=== PATIENT | male | born 1965 | race Caucasian/White ===

== ENCOUNTER 2017-01-05 12:24 | Observation (INO) ==
[2017-01-05] MEDS ORDERED: 0.9 % Sodium Chloride 1,000 ML IVC ONE (12:37)
--- NOTE | 2017-01-05 12:44 | Emergency Department Note ---
Disposition Clinical Impression: Altered mental status Qualifiers: Altered mental status type: unspecified Qualified Code(s): R41.82 - Altered mental status, unspecified Disposition: Admitted As Inpatient Condition: Good Referrals: NO,PCP [Primary Care Provider] - Forms: ED Satisfaction Letter General Adult HPI - General Chief complaint: ED Psychiatric Symptoms Stated complaint: Psych/Slurred Speech Time Seen by Provider: 01/05/17 12:37 Source: EMS Limitations: no limitations Nursing Notes Reviewed: Yes Vital Signs Reviewed: Yes - History of Present Illness HPI Narrative: Patient brought in by EMS for evaluation of altered mental status. Patient was initially seen at outpatient psychiatric clinic and was referred secondary to constellation of symptoms. Patient is able to speak in sentences and is awake and alert however his orientation alters and fluctuates throughout the interview. His initial name and birthdate have not been found to have a match. Patient is unable to work on [employer]. Patient had to be initially put on computers at [facility] [place]. Patient states that his symptoms have been going on since the fifth. He was asked if to confirm that this has been longer than a week but she said yes. On exam the patient does have some right- sided weakness as well as numbness to the lower extremity. Patient has diffuse weakness and complains of fatigue. Will initiate head CT as well as further evaluation for possible stroke versus metabolic or other organic cause. Pain Scale: 0 - Related Data Allergies Allergy/AdvReac Type Severity Reaction Status Date / Time meperidine [From Demerol] Allergy Hallucinati Verified 01/05/17 12:41 ng Review of Systems: Review of systems Limited to patient's mental status and ability to communicate. The below pertinent positive and negative findings were verified with patient. Constitutional: Reports: weakness, other (Fatigue) Neurological: Reports: weakness, numbness, confusion Endocrine: Reports: fatigue Past Medical History - Past Medical History Medical history: Reports: hyperlipidemia, hypertension Psychiatric history: Reports: anxiety, depression - Social History Smoking Status: Never smoker Smokeless Tobacco Status: Yes (chewing tobacco) Alcohol use: Reports: occasionally Drug use: Reports: none Physical Exam General appearance: Patient with slurred speech and confusion Eyes: anicteric sclerae, moist conjunctivae; PERRL HENT: Atraumatic; oropharynx clear with moist mucous membranes and no mucosal ulcerations Neck: Normal inspection; Trachea midline; FROM, supple Lungs: CTA, with normal respiratory effort and no intercostal retractions CV: RRR, no MRGs Abdomen: Soft, non-tender; no rebound or gaurding Extremities: No peripheral edema or extremity lymphadenopathy Skin: Normal temperature; no rash, ulcers or lesions Psych: Appropriate mood and affect Neuro: Awake - General Limitations: no limitations General appearance: alert - Expanded Neurological Exam Patient oriented to: Present: person. Absent: place, time Speech: Present: expressive aphasia Cranial nerves: EOM function (II, III, IV, ): Normal, facial sensation (V): Normal, facial palsy (VII): Normal, gag reflex (IX): Normal, spinal accessory function (XI): Normal, tongue deviation (XII): Normal Cerebellar function: finger to nose: Abnormal Right, heel to scott: Normal Motor strength - LUE: 4/5 Motor strength - RUE: 4/5 Motor strength - LLE: 4/5 Motor strength - RLE: 3/5 Sensory exam upper extremity: light touch: Normal Sensory exam lower extremity: light touch: Abnormal Right Coma Scale Eye Opening: Spontaneous Coma Scale Motor Response: Obeys Commands Coma Scale Verbal Response: Oriented Coma Scale Total: 15 Course - Reevaluation(s) Reevaluation #1: Mother is now bedside. Patient has been altered since Tuesday. Patient awoke on Tuesday and had a period of lucidity this the last approximately 20 minutes. She states that he took his medications and 10 minutes after that he went back to this altered behavior where he has generalized weakness. Associated falls. Aggressive behavior, forgetfulness, stuttering. Patient has had several episodes similar to this in the past but they have not had a specific diagnosis. Patient lives with his mother where she is able to help with his care. Patient has a history of bipolar, schizophrenia, diabetes, deteriorating disks. She has a medication list will be also provided and the patient chart which includes help her down, Lipitor, metformin, Hydrocort Dyazide, ranitidine , if,, allopurinol, lisinopril, omeprazole, Risperdal, doxepin, benztropine, Depakote, fenofibrate. His mother's name is Antionette. Phone number is [phone]. - Consultations Consultation #1: Hospitalist Dr. Dixon accepts. Vital Signs Temperature 98 F 01/05/17 12:25 Pulse Rate 104 07/19/17 12:25 Respiratory Rate 18 01/05/17 12:25 Blood Pressure 127/85 01/05/17 12:25 O2 Sat by Pulse Oximetry 94 01/05/17 12:25 Temperature 98 F 01/05/17 12:25 Pulse Rate 96 01/05/17 15:20 Respiratory Rate 18 01/05/17 15:20 Blood Pressure 130/79 01/05/17 15:20 O2 Sat by Pulse Oximetry 94 01/05/17 15:20 Oxygen Delivery Oxygen Delivery Room Air Medical Decision Making - Medical Records Medical records reviewed: Yes I reviewed the patient's medical records. - Lab Data Lab results reviewed: Yes I reviewed the patient's lab results. Result diagrams: 01/05/17 13:06 01/05/17 13:06 Lab Results 01/05/17 01/05/17 01/05/17 Range/Units 13:06 13:06 13:06 WBC 5.9 (4.3-11.1) K/mcL RBC 4.57 (4.19-5.50) M/mcL Hgb 15.1 (12.9-16.9) g/dL Hct 43.7 (37.5-50.1) % MCV 95.6 (83.0-100.0) fL MCH 33.0 (28.0-33.3) pg MCHC 34.6 (31.6-35.5) g/dL RDW 13.2 (11.5-14.5) % Plt Count 250 (140-400) K/mcL MPV 9.2 L (9.4-12.4) fL Immature Gran % 0.3 (0-4) % Seg Neutrophils % 66.0 % Lymphocytes % 26.1 % Monocytes % 5.1 % Eosinophils % 1.5 % Basophils % 1.0 % Neutrophils # 3.9 (1.6-8.9) K/mcL Lymphocytes # 1.6 (0.6-4.6) K/mcL Monocytes # 0.3 (0.0-1.3) K/mcL Eosinophils # 0.1 (0.0-0.6) K/mcL Basophils # 0.1 (0.0-0.2) K/mcL PT 11.5 (9.4-12.1) Seconds INR 1.1 APTT 28.0 (26.0-36.0) Seconds Sodium 136 (136-145) mEq/L Potassium 4.4 (3.5-4.5) mEq/L Chloride 101 (98-109) mEq/L Carbon Dioxide 26 (19-29) mEq/L BUN 13 (8-26) mg/dL Creatinine 1.08 (0.72-1.25) mg/dL Est GFR ( Amer) > 60 (> 60) Est GFR (Non-Af Amer) > 60 (> 60) BUN/Creatinine Ratio 12 (6-26) Glucose 131 H (70-99) mg/dL Calculated Osmolality 284 (280-300) Calcium 9.6 (8.6-10.8) mg/dL Creatine Kinase 435 H (30-200) Units/L Troponin I (0-0.03) ng/mL Urine Color (Yellow) Urine Clarity (Clear) Urine pH (5.0-8.0) pH Units Ur Specific Elon (1.010-1.025) Urine Protein (Neg-Trace) mg/dL Urine Glucose (UA) (Normal) mg/dL Urine Ketones (Negative) mg/dL Urine Blood (Negative) Urine Nitrite (Negative) Urine Bilirubin (Negative) Urine Urobilinogen (Normal) mg/dL Ur Leukocyte Esterase (Negative) Ur Culture Indicated? (NO) Urine Opiates Screen (Cxhxoj=477) ng/mL Ur Barbiturates Screen (Onyjgk=310) ng/mL Ur Phencyclidine Scrn (Cutoff=25) ng/mL Ur Amphetamines Screen (Rmwuxl=0650) ng/mL U Benzodiazepines Scrn (Rfcowo=101) ng/mL Urine Cocaine Screen (Cutoff= 300) ng/mL U Marijuana (THC) Screen (Cutoff = 50) ng/mL Ethyl Alcohol < 10 (0-10) mg/dL 01/05/17 01/05/17 01/05/17 Range/Units 13:06 15:17 15:17 WBC (4.3-11.1) K/mcL RBC (4.19-5.50) M/mcL Hgb (12.9-16.9) g/dL Hct (37.5-50.1) % MCV (83.0-100.0) fL MCH (28.0-33.3) pg MCHC (31.6-35.5) g/dL RDW (11.5-14.5) % Plt Count (140-400) K/mcL MPV (9.4-12.4) fL Immature Gran % (0-4) % Seg Neutrophils % % Lymphocytes % % Monocytes % % Eosinophils % % Basophils % % Neutrophils # (1.6-8.9) K/mcL Lymphocytes # (0.6-4.6) K/mcL Monocytes # (0.0-1.3) K/mcL Eosinophils # (0.0-0.6) K/mcL Basophils # (0.0-0.2) K/mcL PT (9.4-12.1) Seconds INR APTT (26.0-36.0) Seconds Sodium (136-145) mEq/L Potassium (3.5-4.5) mEq/L Chloride (98-109) mEq/L Carbon Dioxide (19-29) mEq/L BUN (8-26) mg/dL Creatinine (0.72-1.25) mg/dL Est GFR ( Amer) (> 60) Est GFR (Non-Af Amer) (> 60) BUN/Creatinine Ratio (6-26) Glucose (70-99) mg/dL Calculated Osmolality (280-300) Calcium (8.6-10.8) mg/dL Creatine Kinase (30-200) Units/L Troponin I 0.01 (0-0.03) ng/mL Urine Color Yellow (Yellow) Urine Clarity Clear (Clear) Urine pH 7.5 (5.0-8.0) pH Units Ur Specific Elon > 1.030 H (1.010-1.025) Urine Protein Negative (Neg-Trace) mg/dL Urine Glucose (UA) >=1000 H (Normal) mg/dL Urine Ketones 15 H (Negative) mg/dL Urine Blood Negative (Negative) Urine Nitrite Negative (Negative) Urine Bilirubin Negative (Negative) Urine Urobilinogen Normal (Normal) mg/dL Ur Leukocyte Esterase Negative (Negative) Ur Culture Indicated? NO (NO) Urine Opiates Screen Negative (Uzogvs=668) ng/mL Ur Barbiturates Screen Negative (Gjrrpa=767) ng/mL Ur Phencyclidine Scrn Negative (Cutoff=25) ng/mL Ur Amphetamines Screen Negative (Hegdpv=0892) ng/mL U Benzodiazepines Scrn Negative (Gtilah=937) ng/mL Urine Cocaine Screen Negative (Cutoff= 300) ng/mL U Marijuana (THC) Screen Negative (Cutoff = 50) ng/mL Ethyl Alcohol (0-10) mg/dL - Radiology Data Radiology results reviewed: Yes I reviewed the patient's radiology results. - EKG Data EKG #1 EKG attestation: Yes I reviewed and interpreted this EKG. EKG results narrative: EKG shows sinus rhythm with ventricular rate of 95 bpm. W[place] interval 167. QRS 10. QTC 415. Patient has no significant ST elevations or depressions. No previous EKG for comparison. Attestation Statement - Attestation Attestation: I examined this patient and my medical decision-making was reviewed with the Resident Physician. I agree with the documented findings, disposition and treatment plan as described except to the extent set forth below. Patient emergency department with weakness. Patient was in town for a worker's comp appointment. He was having slurred speech and weakness. They could not walk him. They called 911 concern for stroke. Patient is a history of similar episodes in the past. This one is lasted since Tuesday. States this is a worse episode is had. On examination he is in no acute distress sitting on the side of the bed. Do not appreciate any focal weakness. No pronator drift. Speech is difficult to understand. Slurred. Plan. Do not appreciate any focal neurologic deficits to suggest a stroke. Symptoms have been present for over 24 hours. He would not meet criteria for TPA. Patient will be admitted for further monitoring and workup.
[2017-01-05 13:23] LABS: Basophils # 0.1 K/mcL (0.0-0.2); Eosinophils # 0.1 K/mcL (0.0-0.6); Eosinophils % 1.5 %; Hematocrit 43.7 % (37.5-50.1); Hemoglobin 15.1 g/dL (12.9-16.9); Immature Granulocytes % 0.3 % (0-4); Lymphocytes # 1.6 K/mcL (0.6-4.6); Lymphocytes % 26.1 %; Mean Corpuscular HGB Conc 34.6 g/dL (31.6-35.5); Mean Corpuscular Volume 95.6 fL (83.0-100.0); Mean Platelet Volume 9.2 fL (9.4-12.4); Monocytes # 0.3 K/mcL (0.0-1.3); Monocytes % 5.1 %; Neutrophils # 3.9 K/mcL (1.6-8.9); Platelet Count 250 K/mcL (140-400); Red Blood Count 4.57 M/mcL (4.19-5.50); Red Cell Distribution Width 13.2 % (11.5-14.5)
[2017-01-05 13:30] LABS: INR 1.1; Prothrombin Time 11.5 Seconds (9.4-12.1)
[2017-01-05 13:36] LABS: BUN/Creatinine Ratio 12 (6-26); Blood Urea Nitrogen 13 mg/dL (8-26); Calcium 9.6 mg/dL (8.6-10.8); Carbon Dioxide 26 mEq/L (19-29); Chloride 101 mEq/L (98-109); Creatine Kinase 435 Units/L (30-200); Glucose 131 mg/dL (70-99); Osmolality,Calculated 284 (280-300); Potassium 4.4 mEq/L (3.5-4.5); Sodium 136 mEq/L (136-145); eGFR For African Americans > 60 (> 60); eGFR For Non-African Americans > 60 (> 60)
[2017-01-05 13:37] LABS: Ethanol < 10 mg/dL (0-10)
[2017-01-05 15:33] LABS: Bilirubin,Urine Negative (Negative); Blood,Urine Negative (Negative); Clarity,Urine Clear (Clear); Color,Urine Yellow (Yellow); Glucose,Urine (UA) >=1000 mg/dL (Normal); Ketones,Urine 15 mg/dL (Negative); Leukocyte Esterase,Urine Negative (Negative); Nitrite,Urine Negative (Negative); PH,Urine 7.5 pH Units (5.0-8.0); Protein,Urine Negative (Neg-Trace); Specific Gravity,Urine > 1.030 (1.010-1.025); Urobilinogen,Urine Normal (Normal)
[2017-01-05 15:37] LABS: Amphetamine Screen,Urine Negative ng/mL (Cutoff=1000); Barbiturate Screen,Urine Negative ng/mL (Cutoff=200); Benzodiazepines Screen,Urine Negative ng/mL (Cutoff=200); Cannabinoid Screen,Urine Negative ng/mL (Cutoff = 50); Cocaine Screen,Urine Negative ng/mL (Cutoff= 300); Opiate Screen,Urine Negative ng/mL (Cutoff=300); Phencyclidine Screen,Urine Negative ng/mL (Cutoff=25)
[2017-01-05] MEDS ORDERED: Naloxone 0.4 MG/ML INJ IVP PRN (17:37)
[2017-01-05] MEDS ORDERED: Ondansetron 4 MG/2 ML VIAL IVP PRN (17:37)
[2017-01-05] MEDS: 0.9 % Sodium Chloride 1,000 ML IVC SCH (19:10)
[2017-01-05] MEDS ORDERED: *HR* Dextrose 50 % in Water (Syg) 50 ML SYRINGE IVP PRN (19:16)
[2017-01-05] MEDS ORDERED: D5% in Water 1,000 ML IVC PRN (19:16)
[2017-01-05] MEDS ORDERED: Dextrose Gel 15 GM PO PRN ×2 (19:16)
[2017-01-05] MEDS: Aspirin Enteric Coated 81 MG Tablet PO SCH (19:23)
[2017-01-05] MEDS: *HR* Heparin 5,000 UNIT/ML VIAL SQ SCH (19:24)
--- NOTE | 2017-01-05 20:11 | Internal Med History&Physical ---
Date of Encounter: 01/05/17 Time of Encounter: 18:00 Assessment and Plan (1) Schizophrenia Current visit: Yes Status: Acute We will consult psychiatry and adjust medication in a.m. Qualifiers: Schizophrenia type: unspecified Qualified Code(s): F20.9 - Schizophrenia, unspecified (2) DVT prophylaxis Current visit: Yes Status: Acute Heparin subcutaneously (3) Hypertension Current visit: Yes Status: Acute Continue home medications. BP is stable Qualifiers: Hypertension type: essential hypertension Qualified Code(s): I10 - Essential (primary) hypertension (4) Diabetes Current visit: Yes Status: Acute Place patient on sliding scale coverage Qualifiers: Diabetes mellitus type: type 2 Diabetes mellitus complication status: without complication Diabetes mellitus intermediate accountant insulin use: without intermediate accountant use Qualified Code(s): E11.9 - Type 2 diabetes mellitus without complications (5) Altered mental status Current visit: Yes Status: Acute Etiology is undetermined. Most likely due to polypharmacy causal by psych medication. - We will place patient on close monitoring. - Continue cardiac monitoring to rule out arrhythmia. - Place echo and duplex carotid - Psych consult for medication management. - No signs of infection. Qualifiers: Altered mental status type: disorientation Qualified Code(s): R41.0 - Disorientation, unspecified Internal Medicine - H&P: HPI Chief complaint: Altered mental status Admitted From: Home Plans for Post Hospital Care: Home History of present illness: Mr. Bergman is a 51 year old male with significant psych history present to ER for altered mental status. Patient is awake alert but disoriented. According to family, patient has similar episodes previously. He was also complaining of left arm weakness, however, CT head negative and weakness has resolved when I examined him. There is no signs of dehydration or infection. Consider multiple psych medication caused confusion. We will obtain psychiatry consult in a.m. Place patient on close monitoring. Past Med Surg Social Fam HX - Past Medical History Medical history: hyperlipidemia, hypertension Psychiatric history: anxiety, depression - Social History Smoking Status: Never smoker Smokeless Tobacco Status: Yes (chewing tobacco) Alcohol use: occasionally Drug use: none - Family History Father Living Status: Hx Family Cardiac Disorders: Yes ([place]) Internal Medicine - H&P: Meds Allopurinol [Zyloprim] 300 mg PO DAILY 01/05/17 [History] Atorvastatin Calcium [Lipitor] 80 mg PO HS 01/05/17 [History] Benztropine Mesylate 2 mg PO BID 01/05/17 [History] Canagliflozin [Invokana] 100 mg PO QAM 01/05/17 [History] Divalproex (24 HR) [Depakote ER (24 HR)] 1,500 mg PO HS 01/05/17 [History] Doxepin HCl 150 mg PO HS 01/05/17 [History] Fenofibrate 134 mg PO DAILY 01/05/17 [History] Lisinopril [Zestril] 20 mg PO DAILY 01/05/17 [History] Metformin HCl [Glucophage] 1,000 mg PO BID 01/05/17 [History] [place]-3/Dha/Epa/Fish Oil [Fish Oil 1,000 mg Softgel] 2,000 mg PO BID 01/05/17 [ History] Omeprazole [PriLOSEC] 20 mg PO DAILY 01/05/17 [History] Paliperidone Palmitate [Invega Sustenna] 234 mg IM QMONTH 01/05/17 [History] Ranitidine HCl [Zantac] 150 mg PO 1-2XD PRN 01/05/17 [History] hydroCHLOROthiazide [Hydrochlorothiazide] 25 mg PO DAILY 01/05/17 [History] risperiDONE [RisperDAL] 1 mg PO HS 01/05/17 [History] Allergies meperidine [From Demerol] Allergy (Verified 01/05/17 12:41) Hallucinating All Systems PM: A 10-system review of systems was performed and is negative for pertinent findings except as documented above in the HPI. - Constitutional Vitals: Temp Pulse Resp BP Pulse Ox 97.8 F 100 15 145/92 94 01/05/17 19:16 01/05/17 19:16 01/05/17 19:16 01/05/17 19:16 01/05/17 19:16 General appearance: Present: A&O X 0, no acute distress - Head Head exam: Present: atraumatic, normocephalic - Eye Eye exam: Present: PERRL, conjuntiva pink, sclera anicteric Pupils: Present: PERRL - Neck Neck exam general surgery: Present: supple, trachea midline. Absent: lymphadenopathy - Respiratory Respiratory exam: Present: CTAB. Absent: accessory muscle use, rales, rhonchi, wheezes - Cardiovascular Cardiovascular exam: Present: RRR, +S1, +S2. Absent: diastolic murmur, gallop, rubs, systolic murmur - GI/Abdominal GI/Abdominal exam: Present: normal bowel sounds, soft, no peritoneal signs. Absent: distended, tenderness - Extremities Exam Extremities exam: Present: warm, radial pulses palpable and symetrical. Absent : calf tenderness, cyanotic, pedal edema - Neurological Exam Neurological exam: Present: CN II-XII intact, oriented X3, no focal deficits. Absent: pronater drift, facial droop, speech deficit Additional comments: Fine tremor on both arm. - Skin Skin exam: Present: dry, intact Internal Med - H&P Results - Labs CBC & Chem 7: 01/05/17 13:06 01/05/17 13:06
[2017-01-05] MEDS: Nicotine 14 MG PATCH.TD24 TD SCH (22:21)
[2017-01-06] MEDS: Insulin LISPRO 300 UNITS/3 ML VIAL SQ SCH ×5 (04:24→20:06)
[2017-01-06] MEDS: *HR* Heparin 5,000 UNIT/ML VIAL SQ SCH ×2 (05:22→17:20)
[2017-01-06] MEDS: 0.9 % Sodium Chloride 1,000 ML IVC SCH ×2 (05:36→14:49)
[2017-01-06 07:00] LABS: Alanine Aminotransferase 22 Units/L (0-55); Albumin 3.7 g/dL (3.5-5.0); Albumin/Globulin Ratio 1.1 (1.1-2.2); Alkaline Phosphatase 77 Units/L (38-126); Aspartate Amino Transferase 31 Units/L (5-34); BUN/Creatinine Ratio 12 (6-26); Bilirubin,Total 0.6 mg/dL (0.2-1.2); Blood Urea Nitrogen 13 mg/dL (8-26); Carbon Dioxide 29 mEq/L (19-29); Chloride 103 mEq/L (98-109); Globulin 3.4 g/dL (2.4-3.5); Glucose 143 mg/dL (70-99); Magnesium 2.4 mg/dL (1.6-2.6); Osmolality,Calculated 287 (280-300); Potassium 4.2 mEq/L (3.5-4.5); Sodium 137 mEq/L (136-145); Total Protein 7.1 g/dL (6.0-8.3); eGFR For African Americans > 60 (> 60); eGFR For Non-African Americans > 60 (> 60)
[2017-01-06 07:01] LABS: Basophils # 0.1 K/mcL (0.0-0.2); Basophils % 1.5 %; Eosinophils # 0.2 K/mcL (0.0-0.6); Eosinophils % 3.8 %; Hematocrit 43.1 % (37.5-50.1); Hemoglobin 14.2 g/dL (12.9-16.9); Immature Granulocytes % 0.3 % (0-4); Lymphocytes # 2.2 K/mcL (0.6-4.6); Lymphocytes % 35.4 %; Mean Corpuscular HGB Conc 32.9 g/dL (31.6-35.5); Mean Corpuscular Hemoglobin 32.1 pg (28.0-33.3); Mean Corpuscular Volume 97.5 fL (83.0-100.0); Mean Platelet Volume 9.3 fL (9.4-12.4); Monocytes # 0.5 K/mcL (0.0-1.3); Monocytes % 8.5 %; Neutrophils # 3.1 K/mcL (1.6-8.9); Platelet Count 266 K/mcL (140-400); Red Blood Count 4.42 M/mcL (4.19-5.50); Segmented Neutrophils % 50.5 %
[2017-01-06 07:23] LABS: Thyroid Stimulating Hormone 2.382 mcIU/mL (0.350-4.840)
[2017-01-06] MEDS: Lisinopril 20 MG TABLET PO SCH (08:56)
[2017-01-06] MEDS: Nicotine 14 MG PATCH.TD24 TD SCH (08:56)
[2017-01-06] MEDS: hydroCHLOROthiazide 25 MG TABLET PO SCH (08:56)
[2017-01-06] MEDS: Aspirin Enteric Coated 81 MG Tablet PO SCH (08:56)
--- NOTE | 2017-01-06 09:05 | Electrocardiograph Report ---
[facility] Test Date: 2017-01-05 Pat Name: Yan Bergman Department: 105 Room: 3B11 Gender: M Materials Clerk: : 1965 Requested By: Sharad Burch Order Number: [id number] Rolan MD: Harjinder García MD Measurements Intervals [place] Rate: 95 P: 10 KS: 167 QRS: -37 QRSD: 110 T: 12 QT: 362 QTc: 415 Interpretive Statements SINUS RHYTHM MARKED LEFT AXIS DEVIATION [QRS AXIS < -30] PATTERN CONSISTENT WITH PULMONARY DISEASE Electronically Signed On 01-06-2017 9:03:54 EDT by Harjinder García MD
--- NOTE | 2017-01-06 14:36 | Carotid Imaging Report ---
Carotid Duplex Patient Name:Yan Bergman Order Number:[id number] Procedure Date:01/05/2017 Date:1965Age:51 yrs Gender:Male Lt BP:139 / 92 mmHg Rt.BP:139 / 92 mmHgHeart Rate: Location:[facility] Room #: 3B11 Car Dumper Operator:Nishi Oconnell Referring MD:Maribell Dixon MD theatrical rigger:None Reading MD:Oleg Christy MD , FACS Primary Indications:Altered Mental Status Risk Factors Yes/No Hypertension Hypercholesterolemia Diabetes Hx of TIA Smoking Current Impressions: Findings: Bilateral carotid systems are essentially normal. Findings Carotid Duplex: Right: There is nonstenotic plaque in the right distal common carotid artery. There is smooth heterogeneous plaque. Prior Study: No prior study available for comparison. Carotid Results Right PSV EDV Assessment Proximal CCA 106 18 Normal Mid CCA 86 18 Normal Distal CCA 71 25 Non Stenotic Plaque Bifurcation 64 18 Normal Proximal ICA 48 22 Normal Mid ICA 76 29 Normal Distal ICA 72 32 Normal ECA 76 18 Normal Vertebral Artery 23 7 Antegrade Flow Left PSV EDV Assessment Proximal CCA 119 25 Normal Mid CCA 75 19 Normal Distal CCA 72 20 Normal Bifurcation 71 23 Normal Proximal ICA 33 15 Normal Mid ICA 75 34 Normal Distal ICA 77 38 Normal ECA 69 18 Normal Vertebral Artery 21 8 Antegrade Flow Ratio's Right ICA/CCA Ratio: 0.88 ICA/CCA Values: 76/86 Left ICA/CCA Ratio: 1.03 ICA/CCA Values: 77/75 Updated by Oleg Christy MD, FACS on 01/06/2017 2:31:13 PM Oleg Christy MD electronically signed on 01/06/2017 2:31:39 PM with status of Final
--- NOTE | 2017-01-06 15:00 | Discharge Summary ---
Date of Encounter: 01/06/17 Time of Encounter: 09:00 - Discharge Medications Home Medications: Allopurinol [Zyloprim] 300 mg PO DAILY 01/05/17 [History] Atorvastatin Calcium [Lipitor] 80 mg PO HS 01/05/17 [History] Benztropine Mesylate 2 mg PO BID 01/05/17 [History] Canagliflozin [Invokana] 100 mg PO QAM 01/05/17 [History] Divalproex (24 HR) [Depakote ER (24 HR)] 1,500 mg PO HS 01/05/17 [History] Doxepin HCl 150 mg PO HS 01/05/17 [History] Fenofibrate 134 mg PO DAILY 01/05/17 [History] Lisinopril [Zestril] 20 mg PO DAILY 01/05/17 [History] Metformin HCl [Glucophage] 1,000 mg PO BID 01/05/17 [History] [place]Brien-3/Dha/Epa/Fish Oil [Fish Oil 1,000 mg Softgel] 2,000 mg PO BID 01/05/17 [ History] Omeprazole [PriLOSEC] 20 mg PO DAILY 01/05/17 [History] Paliperidone Palmitate [Invega Sustenna] 234 mg IM QMONTH 01/05/17 [History] Ranitidine HCl [Zantac] 150 mg PO 1-2XD PRN 01/05/17 [History] hydroCHLOROthiazide [Hydrochlorothiazide] 25 mg PO DAILY 01/05/17 [History] risperiDONE [RisperDAL] 1 mg PO HS 01/05/17 [History] Allergies/Adverse Reactions: Allergies meperidine [From Demerol] Allergy (Verified 01/05/17 12:41) Hallucinating Procedures/tests Complete & Pending: Procedures Performed prior 72 hours Category Date Time Status MR head/brain wo con [MR] Routine MRI 01/06/17 11:25 Ordered EV carotid duplex imaging BI Routine Y 01/05/17 17:47 Completed EV echocardiogram Routine Y 01/05/17 17:47 Completed Date of admission: 01/05/17 16:05 Primary care physician: PCP NO Consults: 01/05/17 17:42 Consult to Psychiatry [CONS] Routine Consulting Provider: Psychiatry [place] Reason for Consult: Pt is on multiple psych med, need adjust Call Completed: Yes 01/05/17 17:44 Consult to Speech Therapy [CONS] Routine Comment: Evaluate, develop and implement POC Reason for Consult: Swallow evaluation Call Completed: No - Patient Status Condition: Good - Discharge Instructions Follow Up With: NO,PCP [Primary Care Provider] - Hospital course: Mr. Bergman is a 51 year old male - Time Spent with Patient Total time spent providing and/or coordinating discharge services: - Constitutional Vitals: Temp Pulse Resp BP Pulse Ox 97.8 F 98 16 124/76 93 01/06/17 11:32 01/06/17 11:32 01/06/17 11:32 01/06/17 11:32 01/06/17 11:32 General appearance: Present: A&O X 0, no acute distress
--- NOTE | 2017-01-06 15:03 | Internal Med Progress Note ---
Date of Encounter: 01/06/17 Time of Encounter: 09:00 - Assessment and plan (1) Altered mental status Current Visit: Yes Status: Acute Assessment and plan: Patient is alert, oriented to name, month, year, president. He was not able to answer what city he was then despite being told multiple times and then questioned again immediately. Patient states that he was aware he was traveling , but sure where he was going. He is aware that he sees a neurologist in [place] and also has physicians at [place] that he sees as well. Patient's urine drug screen is negative, labs are within normal limits. Urine is negative for infection, drug screen is negative as well. Echocardiogram shows LVEF of 60% with normal systolic function, mild diastolic dysfunction, all wall segments showed normal motion. Carotids are within normal limits bilaterally. He was evaluated by speech therapy and will be reevaluated tomorrow to assess cognition. Swallow therapy was not warranted. Chest x-ray is negative for any acute process. Currently does not appear that there is any metabolic cause for altered mental status, this could be due to a reaction to medication. Psychology consult is still pending. MRI had brain pending. Will consider neurology consult after MR I is resulted. Patient close to nurses station Continue to monitor Monitor labs MRI results pending Psychiatry evaluation pending Qualifiers: Altered mental status type: disorientation Qualified Code(s): R41.0 - Disorientation, unspecified (2) Schizophrenia Current Visit: Yes Status: Acute Assessment and plan: Chronic. Patient is not paranoid, and just appears to be slightly disoriented. Psychiatry consult pending and medication adjustment pending. Qualifiers: Schizophrenia type: unspecified Qualified Code(s): F20.9 - Schizophrenia, unspecified (3) Hypertension Current Visit: Yes Status: Acute Qualifiers: Hypertension type: essential hypertension Qualified Code(s): I10 - Essential (primary) hypertension (4) Diabetes Current Visit: Yes Status: Acute Assessment and plan: Diabetic diet, sliding scale insulin, A1c ordered for morning. Accu-Cheks before meals at bedtime. Patient is on injectables at home. Qualifiers: Diabetes mellitus type: type 2 Diabetes mellitus complication status: without complication Diabetes mellitus ocean transportation intermediary insulin use: without ocean transportation intermediary use Qualified Code(s): E11.9 - Type 2 diabetes mellitus without complications (5) DVT prophylaxis Current Visit: Yes Status: Acute Assessment and plan: Heparin subcutaneous. - Time Spent With Patient less than 15 minutes - Subjective Interval history: Patient was seen and assessed at 9 AM. Is alert and awake. He is unable to repeat answers even after being told. He is unable to remember from minute to minute where he is. His answers are carpal tunnel times when he is aware that he is unaware of an answer. Patient states he knows that he was traveling from [place] but unsure where he was going. He says he is familiar with [place] and states that he sees a neurologist here. He also states that he travels through [place] on his way to [place] to see another physician. He is a aware of the month, year and who the president is. Patient denies smoking, but admits to smokeless tobacco. Primary nurses spoke with patient's mother today who answered questions for MRI questionnaire. Head and brain MRI is ordered and not completed. We are also waiting on psychiatry for their evaluation. - Constitutional Vitals: Temp Pulse Resp BP Pulse Ox 97.8 F 98 16 124/76 93 01/06/17 11:32 01/06/17 11:32 01/06/17 11:32 01/06/17 11:32 01/06/17 11:32 General appearance: Present: cooperative, A&O X 2, pleasant, no acute distress, answers questions appropriately - Head Head exam: Present: normal inspection - Eye Eye exam: Present: EOMI, normal appearance, conjuntiva pink. Absent: nystagmus - ENT ENT exam: Present: mucous membranes moist, normal external ear exam - Neck Neck exam general surgery: Present: normal inspection. Absent: lymphadenopathy , tenderness - Respiratory Respiratory exam: Present: decreased breath sounds, CTAB. Absent: chest wall tenderness, rales, respiratory distress, rhonchi, stridor, wheezes, tachypnea - Cardiovascular Cardiovascular exam: Present: RRR, +S1, +S2. Absent: clicks, diastolic murmur, gallop, systolic murmur - Expanded Cardiovascular Exam Peripheral pulses: 2+: Dorsalis Pedis (L) PM, Dorsalis Pedis (R) PM - GI/Abdominal GI/Abdominal exam: Present: distended, normal bowel sounds, soft. Absent: hepatomegaly, tenderness - Extremities Exam Extremities exam: Present: normal capillary refill, normal inspection, warm, radial pulses palpable and symetrical. Absent: pedal edema, tenderness - Neurological Exam Neurological exam: Present: alert, oriented X3, no focal deficits. Absent: facial droop, speech deficit - Skin Skin exam: Present: dry, normal color, warm. Absent: rash Internal Medicine: Result - Labs CBC & Chem 7: 01/06/17 05:51 01/06/17 05:51 Labs: Short CBC 01/06/17 Range/Units 05:51 WBC 6.1 (4.3-11.1) K/mcL Hgb 14.2 (12.9-16.9) g/dL Hct 43.1 (37.5-50.1) % Plt Count 266 (140-400) K/mcL Neutrophils # 3.1 (1.6-8.9) K/mcL BMP 01/06/17 05:51 Sodium 137 Potassium 4.2 Chloride 103 Carbon Dioxide 29 BUN 13 Creatinine 1.12 Glucose 143 H Calcium 9.0 Liver Function 01/06/17 Range/Units 05:51 Total Bilirubin 0.6 (0.2-1.2) mg/dL AST 31 (5-34) Units/L ALT 22 (0-55) Units/L Alkaline Phosphatase 77 (38-126) Units/L Albumin 3.7 (3.5-5.0) g/dL - ABG Interpretation ABG results: PT/INR, D-dimer PT 11.5 Seconds (9.4-12.1) 01/05/17 13:06 Consult Discharge Plan - Plan Referrals: NO,PCP [Primary Care Provider] -
[2017-01-06] MEDS ORDERED: *HR* LORazepam 2 MG/ML VIAL IVP ONE (15:18)
--- NOTE | 2017-01-06 17:11 | Consult Note ---
Date of Encounter: 01/06/17 Time of Encounter: 16:30 History of Present Illness Requesting Physician: Viktoria Gonzalez CNP Reason for consult: Medication reconciliation History of present illness: Mr. Bergman is a 51 year old male admitted to medicine for evaluation of altered mental status. Psychiatry consulted for medication reconciliation. Patient seen at bedside this afternoon. He was alert and oriented to place and person but not time. He was appeared slightly confused and not able to give a comprehensive detailed hx. He admitted to outpatient psychiatric follow up and was last seen by his psychiatrist 2 months ago. Unable to give details of his medications bur reported being on a monthly injection which he got today. Will need to verify. Reports also being on Depakote but not able to give additional information. Review of records showed a h/o of Schizoaffective disorder. Depakote level on admission 64.49. Current meds per H/P include Depakote ER 1500mg qhs, Invega Sustenna 234mg IM monthly, Cogentin 2mg bid, Risperdal 1mg BID, Doxepin 150mg qhs. Recommendation: Start Risperdal 1mg bid Start Depakote ER 1500mg qhs Start Cogentin 1mg BID Start Doxepin 50mg qhs Verify last shot of Invega and adminiter when due. CC: Viktoria Gonzalez CNP Past Med Surg Social Fam HX - Past Medical History Medical history: hyperlipidemia, hypertension - Social History Smoking Status: Never smoker Smokeless Tobacco Status: Yes (chewing tobacco) Alcohol use: occasionally Drug use: none - Family History Father Living Status: Hx Family Cardiac Disorders: Yes (NH) Medications & Allergies Allopurinol [Zyloprim] 300 mg PO DAILY 01/05/17 [History] Atorvastatin Calcium [Lipitor] 80 mg PO HS 01/05/17 [History] Benztropine Mesylate 2 mg PO BID 01/05/17 [History] Canagliflozin [Invokana] 100 mg PO QAM 01/05/17 [History] Divalproex (24 HR) [Depakote ER (24 HR)] 1,500 mg PO HS 01/05/17 [History] Doxepin HCl 150 mg PO HS 01/05/17 [History] Fenofibrate 134 mg PO DAILY 01/05/17 [History] Lisinopril [Zestril] 20 mg PO DAILY 01/05/17 [History] Metformin HCl [Glucophage] 1,000 mg PO BID 01/05/17 [History] [place]-3/Dha/Epa/Fish Oil [Fish Oil 1,000 mg Softgel] 2,000 mg PO BID 01/05/17 [ History] Omeprazole [PriLOSEC] 20 mg PO DAILY 01/05/17 [History] Paliperidone Palmitate [Invega Sustenna] 234 mg IM QMONTH 01/05/17 [History] Ranitidine HCl [Zantac] 150 mg PO 1-2XD PRN 01/05/17 [History] hydroCHLOROthiazide [Hydrochlorothiazide] 25 mg PO DAILY 01/05/17 [History] risperiDONE [RisperDAL] 1 mg PO HS 01/05/17 [History] Allergies meperidine [From Demerol] Allergy (Verified 01/05/17 12:41) Hallucinating Mental Status Exam Patient orientation: Yes Person, Yes Place Level of alertness: Alert Patient appearance: Appropriate, Well Groomed Behavior: calm, cooperative Psychomotor activity: Normal Eye contact: Maintains Eye Contact Mood description: Euthymic/stable Affect description: congruent with mood, full range Speech pattern: Normal rate, Normal rhythm, Normal tone Speech volume: Normal Thought process: Linear, Goal Oriented Thought content: No Suicidal ideation, No Homicidal ideation, No Overt delusions Perceptual disturbances: No Auditory hallucinations, No Visual hallucinations Attention span: Capable of Focused Attention Memory description: Grossly Intact Patient reliability: Reliable Historian Intelligence estimate: Average Judgment: Limited Insight: Partial Results - Vital Signs Vital signs: Temp Pulse Resp BP Pulse Ox 98 F 90 15 117/74 94 01/06/17 15:10 01/06/17 15:10 01/06/17 15:10 01/06/17 15:10 01/06/17 15:10 - Labs Labs: Laboratory Last Values WBC 6.1 K/mcL (4.3-11.1) 01/06/17 05:51 RBC 4.42 M/mcL (4.19-5.50) 01/06/17 05:51 Hgb 14.2 g/dL (12.9-16.9) 01/06/17 05:51 Hct 43.1 % (37.5-50.1) 01/06/17 05:51 MCV 97.5 fL (83.0-100.0) 01/06/17 05:51 MCH 32.1 pg (28.0-33.3) 01/06/17 05:51 MCHC 32.9 g/dL (31.6-35.5) 01/06/17 05:51 RDW 13.0 % (11.5-14.5) 01/06/17 05:51 Plt Count 266 K/mcL (140-400) 01/06/17 05:51 MPV 9.3 fL (9.4-12.4) L 01/06/17 05:51 Immature Gran % 0.3 % (0-4) 01/06/17 05:51 Seg Neutrophils % 50.5 % 01/06/17 05:51 Lymphocytes % 35.4 % 01/06/17 05:51 Monocytes % 8.5 % 01/06/17 05:51 Eosinophils % 3.8 % 01/06/17 05:51 Basophils % 1.5 % 01/06/17 05:51 Neutrophils # 3.1 K/mcL (1.6-8.9) 01/06/17 05:51 Lymphocytes # 2.2 K/mcL (0.6-4.6) 01/06/17 05:51 Monocytes # 0.5 K/mcL (0.0-1.3) 01/06/17 05:51 Eosinophils # 0.2 K/mcL (0.0-0.6) 01/06/17 05:51 Basophils # 0.1 K/mcL (0.0-0.2) 01/06/17 05:51 PT 11.5 Seconds (9.4-12.1) 01/05/17 13:06 INR 1.1 01/05/17 13:06 APTT 28.0 Seconds (26.0-36.0) 01/05/17 13:06 Sodium 137 mEq/L (136-145) 01/06/17 05:51 Potassium 4.2 mEq/L (3.5-4.5) 01/06/17 05:51 Chloride 103 mEq/L (98-109) 01/06/17 05:51 Carbon Dioxide 29 mEq/L (19-29) 01/06/17 05:51 BUN 13 mg/dL (8-26) 01/06/17 05:51 Creatinine 1.12 mg/dL (0.72-1.25) 01/06/17 05:51 Est GFR ( Amer) > 60 (> 60) 01/06/17 05:51 Est GFR (Non-Af Amer) > 60 (> 60) 01/06/17 05:51 BUN/Creatinine Ratio 12 (6-26) 01/06/17 05:51 Glucose 143 mg/dL (70-99) H 01/06/17 05:51 POC Glucose 122 (58-89) H 01/05/17 12:52 Calculated Osmolality 287 (280-300) 01/06/17 05:51 Calcium 9.0 mg/dL (8.6-10.8) 01/06/17 05:51 Magnesium 2.4 mg/dL (1.6-2.6) 01/06/17 05:51 Total Bilirubin 0.6 mg/dL (0.2-1.2) 01/06/17 05:51 AST 31 Units/L (5-34) 01/06/17 05:51 ALT 22 Units/L (0-55) 01/06/17 05:51 Alkaline Phosphatase 77 Units/L (38-126) 01/06/17 05:51 Creatine Kinase 435 Units/L (30-200) H 01/05/17 13:06 Troponin I 0.01 ng/mL (0-0.03) 01/05/17 13:06 Serum Total Protein 7.1 g/dL (6.0-8.3) 01/06/17 05:51 Albumin 3.7 g/dL (3.5-5.0) 01/06/17 05:51 Globulin 3.4 g/dL (2.4-3.5) 01/06/17 05:51 Albumin/Globulin Ratio 1.1 (1.1-2.2) 01/06/17 05:51 TSH 2.382 mcIU/mL (0.350-4.840) 01/06/17 05:51 Urine Color Yellow (Yellow) 01/05/17 15:17 Urine Clarity Clear (Clear) 01/05/17 15:17 Urine pH 7.5 pH Units (5.0-8.0) 01/05/17 15:17 Ur Specific [place] > 1.030 (1.010-1.025) H 01/05/17 15:17 Urine Protein Negative mg/dL (Neg-Trace) 01/05/17 15:17 Urine Glucose (UA) >=1000 mg/dL (Normal) H 01/05/17 15:17 Urine Ketones 15 mg/dL (Negative) H 01/05/17 15:17 Urine Blood Negative (Negative) 01/05/17 15:17 Urine Nitrite Negative (Negative) 01/05/17 15:17 Urine Bilirubin Negative (Negative) 01/05/17 15:17 Urine Urobilinogen Normal mg/dL (Normal) 01/05/17 15:17 Ur Leukocyte Esterase Negative (Negative) 01/05/17 15:17 Ur Culture Indicated? NO (NO) 01/05/17 15:17 Urine Opiates Screen Negative ng/mL (Dgkshn=831) 01/05/17 15:17 Ur Barbiturates Screen Negative ng/mL (Jpobvj=123) 01/05/17 15:17 Valproic Acid 68.49 mcg/mL (50-100) 01/05/17 13:06 Ur Phencyclidine Scrn Negative ng/mL (Cutoff=25) 01/05/17 15:17 Ur Amphetamines Screen Negative ng/mL (Vldhtd=9026) 01/05/17 15:17 U Benzodiazepines Scrn Negative ng/mL (Esjhze=415) 01/05/17 15:17 Urine Cocaine Screen Negative ng/mL (Cutoff= 300) 01/05/17 15:17 U Marijuana (THC) Screen Negative ng/mL (Cutoff = 50) 01/05/17 15:17 Ethyl Alcohol < 10 mg/dL (0-10) 01/05/17 13:06 - Impressions Impressions Brain MRI 01/06/17 11:25 IMPRESSION: 1. No acute intracranial abnormality. Specifically, no acute infarction. 2. Diffuse parenchymal volume loss. Scattered foci of supratentorial white matter signal abnormality are nonspecific, but compatible with mild chronic microvascular ischemic changes. D/ / Yaneth Romero MD / Yaneth Romero MD Interpreting Provider: Yaneth Romero MD Consult Discharge Plan - Plan Referrals: NO,PCP [Primary Care Provider] -
[2017-01-06] MEDS: Acetaminophen 325 MG TABLET PO PRN (20:04)
[2017-01-07 04:14] LABS: Basophils # 0.1 K/mcL (0.0-0.2); Basophils % 1.4 %; Eosinophils # 0.2 K/mcL (0.0-0.6); Hematocrit 42.6 % (37.5-50.1); Hemoglobin 14.7 g/dL (12.9-16.9); Immature Granulocytes % 0.4 % (0-4); Lymphocytes # 2.2 K/mcL (0.6-4.6); Lymphocytes % 43.6 %; Mean Corpuscular HGB Conc 34.5 g/dL (31.6-35.5); Mean Corpuscular Hemoglobin 33.1 pg (28.0-33.3); Mean Corpuscular Volume 95.9 fL (83.0-100.0); Mean Platelet Volume 9.4 fL (9.4-12.4); Monocytes # 0.5 K/mcL (0.0-1.3); Neutrophils # 2.1 K/mcL (1.6-8.9); Platelet Count 259 K/mcL (140-400); Red Blood Count 4.44 M/mcL (4.19-5.50); Segmented Neutrophils % 41.6 %
[2017-01-07 04:32] LABS: BUN/Creatinine Ratio 13 (6-26); Blood Urea Nitrogen 14 mg/dL (8-26); Calcium 9.4 mg/dL (8.6-10.8); Carbon Dioxide 26 mEq/L (19-29); Chloride 103 mEq/L (98-109); Glucose 157 mg/dL (70-99); Osmolality,Calculated 290 (280-300); Sodium 138 mEq/L (136-145); eGFR For African Americans > 60 (> 60); eGFR For Non-African Americans > 60 (> 60)
[2017-01-07] MEDS: *HR* Heparin 5,000 UNIT/ML VIAL SQ SCH ×2 (05:09→18:05)
[2017-01-07] MEDS: 0.9 % Sodium Chloride 1,000 ML IVC SCH ×3 (05:19→20:03)
--- NOTE | 2017-01-07 07:37 | Internal Med Progress Note ---
Date of Encounter: 01/07/17 Time of Encounter: 09:10 - Assessment and plan (1) Altered mental status Current Visit: Yes Status: Acute Assessment and plan: Patient appears to be significantly improved today. He is more coherent, he is able to answer all questions without searching for words or question him to be repeated several times. He is alert and oriented to person, place, time. His speech is clear. He is agreeable to stay another night to monitor for effectiveness of medication changes. He was very clear and had good understanding of his medications and what changes were going to be made. He was in agreement with the changes. Pt was seen by psychiatry, recommended to change medications to: Risperdal 1mg po bid Depakote ER 1500mg qhs Cogentin 1mg po bid Doxepin 50mg qhs Determine when last injection of Invega was given and administer if time, it is given monthly. Pt will stay to detemine effectiveness of medication changes and we will continue to evaluate and monitor. Qualifiers: Altered mental status type: disorientation Qualified Code(s): R41.0 - Disorientation, unspecified (2) Schizophrenia Current Visit: Yes Status: Acute Assessment and plan: Medication changes as above. Qualifiers: Schizophrenia type: unspecified Qualified Code(s): F20.9 - Schizophrenia, unspecified (3) Hypertension Current Visit: Yes Status: Acute Assessment and plan: Blood pressure has been well controlled. Continue home medications. Qualifiers: Hypertension type: essential hypertension Qualified Code(s): I10 - Essential (primary) hypertension (4) Diabetes Current Visit: Yes Status: Acute Assessment and plan: A1c 7.0%. Continue SSI, diabetic diet, and accuchecks ac/hs. Qualifiers: Diabetes mellitus type: type 2 Diabetes mellitus complication status: without complication Diabetes mellitus jail insulin use: without crate icer use Qualified Code(s): E11.9 - Type 2 diabetes mellitus without complications (5) DVT prophylaxis Current Visit: Yes Status: Acute Assessment and plan: Heparin SQ daily. Encourage ambulation and up to chair. - Time Spent With Patient less than 15 minutes - Subjective Interval history: Pt was seen and assessed at about 9:10 AM. He appears to be more much more coherent than yesterday. He is alert and oriented 3. His speech is clear. He was able to state that he was in the hospital in [place], the month, the year, and who the president is. Patient did not appear to be searching for words today, was in agreement to spending the night again tonight to monitor for effectiveness of drug changes. He was seen by psychiatry yesterday drug changes were implemented this morning. He states that he is sore from lying around and requested to take a shower this morning. He has been ambulatory in his room and his skull on walks in the hallway with staff. - Constitutional Vitals: Temp Pulse Resp BP Pulse Ox 97.7 F 72 17 126/85 94 01/07/17 06:39 01/07/17 06:39 01/07/17 06:39 01/07/17 06:39 01/07/17 06:39 General appearance: Present: cooperative, A&O X 3, pleasant, no acute distress, answers questions appropriately - Head Head exam: Present: normal inspection - Eye Eye exam: Present: EOMI, normal appearance, PERRL, conjuntiva pink - ENT ENT exam: Present: mucous membranes moist, normal exam, normal external ear exam - Neck Neck exam general surgery: Present: normal inspection. Absent: lymphadenopathy , tenderness - Respiratory Respiratory exam: Present: CTAB. Absent: accessory muscle use, chest wall tenderness, decreased breath sounds, prolonged expiratory phase, rales, respiratory distress, rhonchi, stridor, wheezes, tachypnea - Cardiovascular Cardiovascular exam: Present: RRR, +S1, +S2. Absent: clicks, diastolic murmur, gallop, systolic murmur - GI/Abdominal GI/Abdominal exam: Present: distended, normal bowel sounds, soft. Absent: hepatomegaly, tenderness - Extremities Exam Extremities exam: Present: normal inspection, warm, radial pulses palpable and symetrical. Absent: pedal edema, tenderness - Neurological Exam Neurological exam: Present: alert, normal gait, oriented X3, no focal deficits, strengths equal and symetr throughout. Absent: facial droop, speech deficit - Skin Skin exam: Present: dry, intact, normal color, warm Internal Medicine: Result - Labs CBC & Chem 7: 01/07/17 03:45 01/07/17 03:45 Labs: Short CBC 01/07/17 Range/Units 03:45 WBC 5.0 (4.3-11.1) K/mcL Hgb 14.7 (12.9-16.9) g/dL Hct 42.6 (37.5-50.1) % Plt Count 259 (140-400) K/mcL Neutrophils # 2.1 (1.6-8.9) K/mcL BMP 01/07/17 03:45 Sodium 138 Potassium 4.0 Chloride 103 Carbon Dioxide 26 BUN 14 Creatinine 1.05 Glucose 157 H Calcium 9.4 - ABG Interpretation ABG results: PT/INR, D-dimer PT 11.5 Seconds (9.4-12.1) 01/05/17 13:06 - Impressions Impressions Brain MRI 01/06/17 11:25 IMPRESSION: 1. No acute intracranial abnormality. Specifically, no acute infarction. 2. Diffuse parenchymal volume loss. Scattered foci of supratentorial white matter signal abnormality are nonspecific, but compatible with mild chronic microvascular ischemic changes. D/ / Yaneth Romero MD / Yaneth Romero MD Interpreting Provider: Yaneth Romero MD Consult Discharge Plan - Plan Referrals: NO,PCP [Primary Care Provider] -
[2017-01-07] MEDS: hydroCHLOROthiazide 25 MG TABLET PO SCH (07:43)
[2017-01-07] MEDS: Lisinopril 20 MG TABLET PO SCH (07:44)
[2017-01-07] MEDS: Insulin LISPRO 300 UNITS/3 ML VIAL SQ SCH ×4 (07:44→20:07)
[2017-01-07] MEDS: Aspirin Enteric Coated 81 MG Tablet PO SCH (07:44)
[2017-01-07] MEDS: risperiDONE 1 MG TABLET PO SCH ×2 (07:53→20:02)
[2017-01-07] MEDS: Acetaminophen 325 MG TABLET PO PRN (07:53)
[2017-01-07] MEDS: Nicotine 14 MG PATCH.TD24 TD SCH (07:54)
--- NOTE | 2017-01-07 12:35 | Discharge Summary ---
Date of Encounter: 01/07/17 - Discharge Diagnosis (1) Altered mental status Status: Acute Qualifiers: Altered mental status type: disorientation Qualified Code(s): R41.0 - Disorientation, unspecified (2) Schizophrenia Status: Acute Qualifiers: Schizophrenia type: unspecified Qualified Code(s): F20.9 - Schizophrenia, unspecified (3) Hypertension Status: Acute Qualifiers: Hypertension type: essential hypertension Qualified Code(s): I10 - Essential (primary) hypertension (4) Diabetes Status: Acute Qualifiers: Diabetes mellitus type: type 2 Diabetes mellitus complication status: without complication Diabetes mellitus usp insulin use: without usp use Qualified Code(s): E11.9 - Type 2 diabetes mellitus without complications (5) DVT prophylaxis Status: Acute - Discharge Medications Home Medications: Allopurinol [Zyloprim] 300 mg PO DAILY 01/05/17 [History] Atorvastatin Calcium [Lipitor] 80 mg PO HS 01/05/17 [History] Benztropine Mesylate 2 mg PO BID 01/05/17 [History] Canagliflozin [Invokana] 100 mg PO QAM 01/05/17 [History] Divalproex (24 HR) [Depakote ER (24 HR)] 1,500 mg PO HS 01/05/17 [History] Doxepin HCl 150 mg PO HS 01/05/17 [History] Fenofibrate 134 mg PO DAILY 01/05/17 [History] Lisinopril [Zestril] 20 mg PO DAILY 01/05/17 [History] Metformin HCl [Glucophage] 1,000 mg PO BID 01/05/17 [History] [place]-3/Dha/Epa/Fish Oil [Fish Oil 1,000 mg Softgel] 2,000 mg PO BID 01/05/17 [ History] Omeprazole [PriLOSEC] 20 mg PO DAILY 01/05/17 [History] Paliperidone Palmitate [Invega Sustenna] 234 mg IM QMONTH 01/05/17 [History] Ranitidine HCl [Zantac] 150 mg PO 1-2XD PRN 01/05/17 [History] hydroCHLOROthiazide [Hydrochlorothiazide] 25 mg PO DAILY 01/05/17 [History] risperiDONE [RisperDAL] 1 mg PO HS 01/05/17 [History] Allergies/Adverse Reactions: Allergies meperidine [From Demerol] Allergy (Verified 01/05/17 12:41) Hallucinating Procedures/tests Complete & Pending: Procedures Performed prior 72 hours Category Date Time Status MR head/brain wo con [MR] Routine MRI 01/06/17 11:25 Completed EV carotid duplex imaging BI Routine Y 01/05/17 17:47 Completed EV echocardiogram Routine Y 01/05/17 17:47 Completed Date of admission: 01/05/17 16:05 Primary care physician: PCP NO Consults: 01/05/17 17:42 Consult to Psychiatry [CONS] Routine Consulting Provider: Psychiatry Brittany Reason for Consult: Pt is on multiple psych med, need adjust Call Completed: Yes 01/05/17 17:44 Consult to Speech Therapy [CONS] Routine Comment: Evaluate, develop and implement POC Reason for Consult: Swallow evaluation Call Completed: No - Patient Status Condition: Good - Discharge Instructions Follow Up With: NO,PCP [Primary Care Provider] - Hospital course: Mr. Bergman is a 51 year old male - Time Spent with Patient Total time spent providing and/or coordinating discharge services: - Constitutional Vitals: Temp Pulse Resp BP Pulse Ox 98.5 F 83 16 119/81 93 01/07/17 10:41 01/07/17 10:41 01/07/17 10:41 01/07/17 10:41 01/07/17 10:41 General appearance: Present: cooperative, A&O X 2, pleasant, no acute distress, answers questions appropriately
[2017-01-07] MEDS ORDERED: Divalproex (24 HR) 500 MG TABLET PO SCH ×2 (21:00)
[2017-01-08 05:37] LABS: Basophils # 0.1 K/mcL (0.0-0.2); Basophils % 1.5 %; Eosinophils # 0.3 K/mcL (0.0-0.6); Eosinophils % 4.2 %; Hemoglobin 15.3 g/dL (12.9-16.9); Immature Granulocytes % 0.1 % (0-4); Lymphocytes # 2.7 K/mcL (0.6-4.6); Lymphocytes % 40.3 %; Mean Platelet Volume 9.7 fL (9.4-12.4); Monocytes # 0.6 K/mcL (0.0-1.3); Monocytes % 8.3 %; Neutrophils # 3.1 K/mcL (1.6-8.9); Platelet Count 252 K/mcL (140-400); Red Blood Count 4.64 M/mcL (4.19-5.50); Red Cell Distribution Width 13.1 % (11.5-14.5); Segmented Neutrophils % 45.6 %
[2017-01-08 05:58] LABS: BUN/Creatinine Ratio 12 (6-26); Blood Urea Nitrogen 13 mg/dL (8-26); Calcium 9.3 mg/dL (8.6-10.8); Carbon Dioxide 26 mEq/L (19-29); Chloride 102 mEq/L (98-109); Glucose 152 mg/dL (70-99); Osmolality,Calculated 289 (280-300); Potassium 3.6 mEq/L (3.5-4.5); Sodium 138 mEq/L (136-145); eGFR For African Americans > 60 (> 60); eGFR For Non-African Americans > 60 (> 60)
[2017-01-08] MEDS: *HR* Heparin 5,000 UNIT/ML VIAL SQ SCH (06:23)
[2017-01-08 07:00] VITALS: BP 101/73
--- NOTE | 2017-01-08 07:25 | Discharge Summary ---
Date of Encounter: 01/08/17 Time of Encounter: 07:15 - Discharge Diagnosis (1) Altered mental status Priority: Primary Status: Resolved Comments: Patient has returned to baseline. He still cannot remember the name of the city where he is, simply because I feel like he cannot remember the name. Is alert and oriented to person, place, time. His speech is clear. He states that he is agreeable with the medication changes and is concerned about making sure that he has a medication list on discharge to take to his provider. I have assured him that he will have a medication list. He is also concerned that there will be multiple medication changes when he gets back home. Qualifiers: Altered mental status type: disorientation Qualified Code(s): R41.0 - Disorientation, unspecified (2) Schizophrenia Priority: Secondary Status: Acute Comments: Medication changes have been made. Patient has returned to baseline. He will follow up with his regular provider/prescriber when he returns home. Qualifiers: Schizophrenia type: unspecified Qualified Code(s): F20.9 - Schizophrenia, unspecified (3) Hypertension Priority: Secondary Status: Acute Comments: His pressures been well controlled since arrival. He will continue his home medication. Currently takes lisinopril 20 mg daily and hydrochlorothiazide 25 mg daily. Qualifiers: Hypertension type: essential hypertension Qualified Code(s): I10 - Essential (primary) hypertension (4) Diabetes Priority: Secondary Status: Acute Comments: A1c is 7.0%. He will continue his normal home medications and Accu-Chek routine at home. Qualifiers: Diabetes mellitus type: type 2 Diabetes mellitus complication status: without complication Diabetes mellitus fci insulin use: without fci use Qualified Code(s): E11.9 - Type 2 diabetes mellitus without complications (5) DVT prophylaxis Priority: Secondary Status: Acute Comments: Patient has been getting subcutaneous heparin daily. He is ambulatory in his room. (6) Tobacco abuse Priority: Secondary Status: Chronic Comments: Patient states that he rarely smokes cigarettes anymore. Primarily uses smokeless tobacco. We discussed the risks of smokeless tobacco. He is not interested in cessation at this time. - Discharge Medications Prescriptions: Benztropine [Cogentin] 1 mg PO BID #40 tab Doxepin [Sinequan] 50 mg PO HS #60 cap risperiDONE [RisperDAL] 1 mg PO BID #30 tab Home Medications: Allopurinol [Zyloprim] 300 mg PO DAILY 01/05/17 [History] Atorvastatin Calcium [Lipitor] 80 mg PO HS 01/05/17 [History] Canagliflozin [Invokana] 100 mg PO QAM 01/05/17 [History] Divalproex (24 HR) [Depakote ER (24 HR)] 1,500 mg PO HS 01/05/17 [History] Fenofibrate 134 mg PO DAILY 01/05/17 [History] Lisinopril [Zestril] 20 mg PO DAILY 01/05/17 [History] Metformin HCl [Glucophage] 1,000 mg PO BID 01/05/17 [History] [place]-3/Dha/Epa/Fish Oil [Fish Oil 1,000 mg Softgel] 2,000 mg PO BID 01/05/17 [ History] Omeprazole [PriLOSEC] 20 mg PO DAILY 01/05/17 [History] Paliperidone Palmitate [Invega Sustenna] 234 mg IM QMONTH 01/05/17 [History] Ranitidine HCl [Zantac] 150 mg PO 1-2XD PRN 01/05/17 [History] hydroCHLOROthiazide [Hydrochlorothiazide] 25 mg PO DAILY 01/05/17 [History] Benztropine [Cogentin] 1 mg PO BID #40 tab 01/08/17 [Rx] Doxepin [Sinequan] 50 mg PO HS #60 cap 01/08/17 [Rx] risperiDONE [RisperDAL] 1 mg PO BID #30 tab 01/08/17 [Rx] Allergies/Adverse Reactions: Allergies meperidine [From Demerol] Allergy (Verified 01/05/17 12:41) Hallucinating Procedures/tests Complete & Pending: Procedures Performed prior 72 hours Category Date Time Status MR head/brain wo con [MR] Routine MRI 01/06/17 11:25 Completed EV carotid duplex imaging BI Routine Y 01/05/17 17:47 Completed EV echocardiogram Routine Y 01/05/17 17:47 Completed Date of admission: 01/05/17 16:05 Primary care physician: PCP NO Consults: 01/05/17 17:42 Consult to Psychiatry [CONS] Routine Consulting Provider: [facility] Reason for Consult: Pt is on multiple psych med, need adjust Call Completed: Yes 07/19/17 17:44 Consult to Speech Therapy [CONS] Routine Comment: Evaluate, develop and implement POC Reason for Consult: Swallow evaluation Call Completed: No Discharging clinician: Viktoria Gonzalez Anticipated date of discharge: 01/08/17 - Patient Status Disposition: Home, Self-Care Functional capacity at discharge: independent ambulation Overall status at discharge: patient is back to baseline - Discharge Instructions Follow Up With: NO,PCP [Primary Care Provider] - Additional Instructions: Follow up with your primary care physician and her psychiatrist within the next 7-10 days for reevaluation and any medication changes that might be necessary. Do not drive until you are cleared by your psychiatrist or primary care physician. Start your new medication changes today. Be sure to not inadvertently mix up your old medications with your new medications. Your Depakote ER dose has remained unchanged. Continue taking what you already have at home. Return to the emergency department for any other concerns or problems or if your symptoms return. - Diet and Activity Activity: resume usual activities as tolerated Diet: diabetic diet Hospital course: Mr. Bergman is a 51 year old male past medical history of diabetes, hypertension , hyperlipidemia, schizophrenia who presented to the emergency department with altered mental status, left arm weakness, and slurred speech.. He and his mother were driving through the area when he became confused. His mother reports similar episodes in the past. His altered mental status waned over his stay after medication adjustments by psychiatry. Today he appears to be back to his baseline he states he feels much better. He is coherent, his speech is clear, he is alert and oriented 3. Patient is still unaware of where he was traveling with his mother. Has no motor sensory deficits in his gait is steady. His extremities are strong and equal bilaterally both upper and lower. He follows with psychiatry in his home town in [place]. Psychiatry was consulted and made medication changes. He will start Risperdal 1 mg twice a day, Depakote ER 1500 mg daily at bedtime, Cogentin 1 mg twice a day, doxepin 50 mg daily at bedtime, and he is not due for his Invega injection at this time. He says that he gets it at his psychiatrist's office. His truck screen is negative and his labs are within normal limits. His urine was negative for infection. His echocardiogram shows LVEF of 60% with normal systolic function, mild diastolic dysfunction, almost segments showed normal motion. Carotids were within normal limits bilaterally. She was evaluated by speech therapy and passed a swallowing exam. Chest x-ray was negative for any acute process. Head CT was negative for any acute intracranial abnormality. MRI showed no acute intracranial abnormality and no acute infarction. He has diffuse parenchymal volume loss, scattered foci of supratentorial white matter signal abnormality are nonspecific, but compatible with mild chronic microvascular ischemic changes. His vital signs appeared stable, his labs were within normal limits. Patient's A1c is 7%. He will continue his normal oral antidiabetic medications on discharge. He will continue all other home medications without changes other than stated above. He is ready for discharge. - Time Spent with Patient Total time spent providing and/or coordinating discharge services: Less than 30 minutes - Constitutional Vitals: Temp Pulse Resp BP Pulse Ox 97.7 F 80 16 101/73 96 01/08/17 06:59 01/08/17 06:59 01/08/17 06:59 01/08/17 06:59 01/08/17 06:59 General appearance: Present: cooperative, A&O X 3, pleasant, no acute distress, answers questions appropriately - Head Head exam: Present: normal inspection - Eye Eye exam: Present: EOMI, normal appearance, conjuntiva pink. Absent: nystagmus - ENT ENT exam: Present: mucous membranes moist, normal exam, normal external ear exam - Neck Neck exam general surgery: Present: normal inspection. Absent: lymphadenopathy , tenderness - Respiratory Respiratory exam: Present: CTAB, wheezes. Absent: chest wall tenderness, rales , respiratory distress, rhonchi, stridor - Cardiovascular Cardiovascular exam: Present: RRR, +S1, +S2. Absent: diastolic murmur, systolic murmur - GI/Abdominal GI/Abdominal exam: Present: normal bowel sounds, soft. Absent: distended, hernia, hepatomegaly, tenderness - Extremities Exam Extremities exam: Present: normal capillary refill, normal inspection, warm, radial pulses palpable and symetrical. Absent: pedal edema, tenderness - Neurological Exam Neurological exam: Present: alert, normal gait, oriented X3, no focal deficits, strengths equal and symetr throughout. Absent: altered, facial droop, speech deficit - Skin Skin exam: Present: dry, intact, normal color, warm. Absent: rash
[2017-01-08] MEDS: 0.9 % Sodium Chloride 1,000 ML IVC SCH (07:30)
[2017-01-08] MEDS: Insulin LISPRO 300 UNITS/3 ML VIAL SQ SCH (07:31)
[2017-01-08] MEDS: hydroCHLOROthiazide 25 MG TABLET PO SCH (07:35)
[2017-01-08] MEDS: Lisinopril 20 MG TABLET PO SCH (07:35)
[2017-01-08] MEDS: Acetaminophen 325 MG TABLET PO PRN (07:35)
[2017-01-08] MEDS: Nicotine 14 MG PATCH.TD24 TD SCH (07:35)
[2017-01-08] MEDS: risperiDONE 1 MG TABLET PO SCH (07:36)
[2017-01-08] MEDS: Aspirin Enteric Coated 81 MG Tablet PO SCH (07:36)
== END 2017-01-08 11:09 | disposition home or self-care (01) ==
LOC: EMEROO 12:24 → 3BNU 12:24
PROVIDERS: ADMIT Internal Medicine; ATTEND Registered Nurse